=== PATIENT | male | born 1950 | race Caucasian/White ===

== ENCOUNTER → 2021-08-03 | Outpatient (CLI) | payer OTHER ==
[~2021-08-03] MED LIST: AMLODIPINE BESY10 MG PO; ASPIRIN 325MG325 MG PO; CLOPIDOGREL75 MG PO; COZAAR100 MG PO; CRESTOR40 MG PO; GABAPENTIN300 MG PO; GLUCOPHAGE500 MG PO; INVOKANA300 MG PO; JANUVIA100 MG PO; LAMISIL TAB 25250 MG PO; NITROGLYCERIN1 EAC2 TD; ONCE DAILY1 EACH PO; RANOLAZINE ER1000 MG PO; ZANTAC 150 MG150 MG PO; ZANTAC300 MG PO; ZINC50 M1 PO
== END ==
LOC: EXRD 13:07
DX: I73.9 Peripheral vascular disease, unspecified (principal); E11.9 Type 2 diabetes mellitus without complications
CPT/HCPCS: 93925

== ENCOUNTER → 2022-01-22 | Outpatient (CLI) | payer OTHER ==
[~2022-01-22] MED LIST changes: -ASPIRIN 325MG325 MG PO; +ASPIRIN EC81 MG PO; +COQ-10100 MG PO; +FISH OIL 1,0001 EACH PO; +JARDIANCE25 MG PO; +NITROGLYCERIN0.4 MG SL; +NITROGLYCERIN1 EAC1 TD; -NITROGLYCERIN1 EAC2 TD; +OMEPRAZOLE20 MG PO; +PRAMIPEXOLE DI0.5 MG PO; +SPIRONOLACTONE25 MG PO
== END | disposition home or self-care (01) ==
LOC: WCC 06:44
DX: E11.621 Type 2 diabetes mellitus with foot ulcer (principal); L97.512 Non-pressure chronic ulcer of other part of right foot with fat layer exposed; L97.513 Non-pressure chronic ulcer of other part of right foot with necrosis of muscle; L97.812 Non-pressure chronic ulcer of other part of right lower leg with fat layer exposed; E11.65 Type 2 diabetes mellitus with hyperglycemia; I25.10 Atherosclerotic heart disease of native coronary artery without angina pectoris; I73.9 Peripheral vascular disease, unspecified; J44.9 Chronic obstructive pulmonary disease, unspecified; E11.40 Type 2 diabetes mellitus with diabetic neuropathy, unspecified; E66.01 Morbid (severe) obesity due to excess calories; L84 Corns and callosities; Z79.4 Long term (current) use of insulin; Z87.891 Personal history of nicotine dependence; Z79.82 Long term (current) use of aspirin; Z79.899 Other long term (current) drug therapy; Z68.33 Body mass index [BMI] 33.0-33.9, adult
CPT/HCPCS: 87070; 87077; 87186; 87205

== ENCOUNTER → 2022-01-25 | Outpatient (CLI) | payer OTHER | LOC: RAD 12:52 | DX: E11.621 Type 2 diabetes mellitus with foot ulcer (principal) | CPT/HCPCS: 73630 ==

== ENCOUNTER → 2022-01-28 | Outpatient (CLI) | payer OTHER ==
[2022-01-28 16:35] LABS: HEMOGLOBIN 13.2 gm/dl (14.0-17.5); RED BLOOD COUNT 4.25 M/UL (4.20-5.50); WHITE BLOOD COUNT 8.6 K/UL (4.5-11.0)
[2022-01-28 17:04] LABS: BUN/CREATININE RATIO 26 (0-10)
== END ==
LOC: LAB 15:55
PROVIDERS: Nurse Practitioner Family
DX: E11.69 Type 2 diabetes mellitus with other specified complication (principal); M86.9 Osteomyelitis, unspecified; E11.621 Type 2 diabetes mellitus with foot ulcer
CPT/HCPCS: 36415; 71046; 80053; 85025; 85652; 86140; 93005

== ENCOUNTER → 2022-01-28 | Outpatient (CLI) | payer OTHER | END | disposition home or self-care (01) | LOC: WCC 09:21 | DX: E11.621 Type 2 diabetes mellitus with foot ulcer (principal); L97.516 Non-pressure chronic ulcer of other part of right foot with bone involvement without evidence of necrosis; L97.812 Non-pressure chronic ulcer of other part of right lower leg with fat layer exposed; E11.40 Type 2 diabetes mellitus with diabetic neuropathy, unspecified; E11.51 Type 2 diabetes mellitus with diabetic peripheral angiopathy without gangrene; E11.69 Type 2 diabetes mellitus with other specified complication; M86.071 Acute hematogenous osteomyelitis, right ankle and foot; I25.10 Atherosclerotic heart disease of native coronary artery without angina pectoris; J44.9 Chronic obstructive pulmonary disease, unspecified; L84 Corns and callosities; E66.01 Morbid (severe) obesity due to excess calories; Z79.4 Long term (current) use of insulin; Z79.82 Long term (current) use of aspirin; Z79.899 Other long term (current) drug therapy; Z68.33 Body mass index [BMI] 33.0-33.9, adult ==

== ENCOUNTER → 2022-02-01 | Outpatient (CLI) | payer OTHER | LOC: OPSV 12:00 | DX: Z45.2 Encounter for adjustment and management of vascular access device (principal) | CPT/HCPCS: 96365; C1751; J2185 ==

== ENCOUNTER → 2022-02-04 | Outpatient (CLI) | payer OTHER | END | disposition home or self-care (01) | LOC: WCC 08:16 | DX: E11.621 Type 2 diabetes mellitus with foot ulcer (principal); L97.516 Non-pressure chronic ulcer of other part of right foot with bone involvement without evidence of necrosis; L97.811 Non-pressure chronic ulcer of other part of right lower leg limited to breakdown of skin; E11.40 Type 2 diabetes mellitus with diabetic neuropathy, unspecified; E11.65 Type 2 diabetes mellitus with hyperglycemia; E11.51 Type 2 diabetes mellitus with diabetic peripheral angiopathy without gangrene; E11.69 Type 2 diabetes mellitus with other specified complication; M86.071 Acute hematogenous osteomyelitis, right ankle and foot; I25.10 Atherosclerotic heart disease of native coronary artery without angina pectoris; L84 Corns and callosities; J44.9 Chronic obstructive pulmonary disease, unspecified; E66.01 Morbid (severe) obesity due to excess calories; Z79.82 Long term (current) use of aspirin; Z79.899 Other long term (current) drug therapy; Z68.33 Body mass index [BMI] 33.0-33.9, adult | CPT/HCPCS: 97597 ==

== ENCOUNTER → 2022-02-04 | Outpatient (CLI) | payer OTHER ==
[2022-02-04 15:01] LABS: HEMOGLOBIN 12.8 gm/dl (14.0-17.5); RED BLOOD COUNT 4.1 M/UL (4.20-5.50); WHITE BLOOD COUNT 7.7 K/UL (4.5-11.0)
[2022-02-04 15:33] LABS: BUN/CREATININE RATIO 23 (0-10)
== END ==
LOC: OPSV 14:39
PROVIDERS: Nurse Practitioner Family
DX: M86.9 Osteomyelitis, unspecified (principal)
CPT/HCPCS: 80053; 85027; 85652; 86140

== ENCOUNTER → 2022-02-08 | Outpatient (CLI) | payer OTHER | LOC: EMI 14:36 | DX: M86.9 Osteomyelitis, unspecified (principal) | CPT/HCPCS: 73718 ==

== ENCOUNTER → 2022-02-12 | Outpatient (CLI) | payer OTHER | LOC: WCC 07:31 | DX: E11.621 Type 2 diabetes mellitus with foot ulcer (principal); L97.516 Non-pressure chronic ulcer of other part of right foot with bone involvement without evidence of necrosis; L97.812 Non-pressure chronic ulcer of other part of right lower leg with fat layer exposed; L84 Corns and callosities; E11.40 Type 2 diabetes mellitus with diabetic neuropathy, unspecified; E11.65 Type 2 diabetes mellitus with hyperglycemia; E11.51 Type 2 diabetes mellitus with diabetic peripheral angiopathy without gangrene; E11.69 Type 2 diabetes mellitus with other specified complication; M86.071 Acute hematogenous osteomyelitis, right ankle and foot; E66.01 Morbid (severe) obesity due to excess calories; I25.10 Atherosclerotic heart disease of native coronary artery without angina pectoris; J44.9 Chronic obstructive pulmonary disease, unspecified; Z68.33 Body mass index [BMI] 33.0-33.9, adult; Z79.4 Long term (current) use of insulin; Z79.02 Long term (current) use of antithrombotics/antiplatelets; Z79.82 Long term (current) use of aspirin; Z79.899 Other long term (current) drug therapy ==

== ENCOUNTER → 2022-02-12 | Outpatient (CLI) | payer OTHER ==
[2022-02-12 15:41] LABS: HEMOGLOBIN 13.3 gm/dl (14.0-17.5); RED BLOOD COUNT 4.29 M/UL (4.20-5.50); WHITE BLOOD COUNT 8.2 K/UL (4.5-11.0)
[2022-02-12 16:01] LABS: BUN/CREATININE RATIO 31 (0-10)
== END ==
LOC: OPSV 15:00
PROVIDERS: Nurse Practitioner Family
DX: M86.9 Osteomyelitis, unspecified (principal)
CPT/HCPCS: 80053; 85027; 85652; 86140

== ENCOUNTER → 2022-02-18 | Outpatient (CLI) | payer OTHER ==
[2022-02-18 14:15] LABS: RED BLOOD COUNT 4.14 M/UL (4.20-5.50); WHITE BLOOD COUNT 7.4 K/UL (4.5-11.0)
[2022-02-18 14:44] LABS: BUN/CREATININE RATIO 33 (0-10)
== END | disposition home or self-care (01) ==
LOC: OPSV 13:47
PROVIDERS: Nurse Practitioner Family
DX: E11.69 Type 2 diabetes mellitus with other specified complication (principal); E11.65 Type 2 diabetes mellitus with hyperglycemia
CPT/HCPCS: 80053; 83036; 85027; 85652; 86140

== ENCOUNTER → 2022-02-25 | Outpatient (CLI) | payer OTHER | END | disposition home or self-care (01) | LOC: WCC 09:06 | DX: E11.621 Type 2 diabetes mellitus with foot ulcer (principal); L97.516 Non-pressure chronic ulcer of other part of right foot with bone involvement without evidence of necrosis; E11.65 Type 2 diabetes mellitus with hyperglycemia; E11.40 Type 2 diabetes mellitus with diabetic neuropathy, unspecified; E11.51 Type 2 diabetes mellitus with diabetic peripheral angiopathy without gangrene; E11.69 Type 2 diabetes mellitus with other specified complication; M86.071 Acute hematogenous osteomyelitis, right ankle and foot; I25.10 Atherosclerotic heart disease of native coronary artery without angina pectoris; L84 Corns and callosities; J44.9 Chronic obstructive pulmonary disease, unspecified; E66.01 Morbid (severe) obesity due to excess calories; Z79.4 Long term (current) use of insulin; Z79.82 Long term (current) use of aspirin; Z79.899 Other long term (current) drug therapy; Z68.33 Body mass index [BMI] 33.0-33.9, adult ==

== ENCOUNTER → 2022-02-25 | Outpatient (CLI) | payer OTHER ==
[2022-02-25 14:21] LABS: HEMOGLOBIN 13.2 gm/dl (14.0-17.5); RED BLOOD COUNT 4.24 M/UL (4.20-5.50); WHITE BLOOD COUNT 6.9 K/UL (4.5-11.0)
[2022-02-25 14:41] LABS: BUN/CREATININE RATIO 32 (0-10)
== END ==
LOC: OPSV 13:28
PROVIDERS: Nurse Practitioner Family
DX: M86.9 Osteomyelitis, unspecified (principal)
CPT/HCPCS: 80053; 85027; 85652; 86140

== ENCOUNTER → 2022-03-04 | Outpatient (CLI) | payer OTHER | LOC: WCC 08:17 | DX: E11.621 Type 2 diabetes mellitus with foot ulcer (principal); L97.516 Non-pressure chronic ulcer of other part of right foot with bone involvement without evidence of necrosis; L84 Corns and callosities; E11.40 Type 2 diabetes mellitus with diabetic neuropathy, unspecified; E11.65 Type 2 diabetes mellitus with hyperglycemia; E66.01 Morbid (severe) obesity due to excess calories; I25.10 Atherosclerotic heart disease of native coronary artery without angina pectoris; E11.69 Type 2 diabetes mellitus with other specified complication; M86.071 Acute hematogenous osteomyelitis, right ankle and foot; E11.51 Type 2 diabetes mellitus with diabetic peripheral angiopathy without gangrene; J44.9 Chronic obstructive pulmonary disease, unspecified; Z79.4 Long term (current) use of insulin ==

== ENCOUNTER → 2022-03-04 | Outpatient (CLI) | payer OTHER ==
[2022-03-04 14:21] LABS: HEMOGLOBIN 13.2 gm/dl (14.0-17.5); RED BLOOD COUNT 4.44 M/UL (4.20-5.50); WHITE BLOOD COUNT 6.4 K/UL (4.5-11.0)
[2022-03-04 14:45] LABS: BUN/CREATININE RATIO 29 (0-10)
== END ==
LOC: OPSV 13:00
PROVIDERS: Nurse Practitioner Family
DX: M86.9 Osteomyelitis, unspecified (principal)
CPT/HCPCS: 80053; 85027; 85652; 86140

== ENCOUNTER → 2022-03-11 | Outpatient (CLI) | payer OTHER ==
[2022-03-11 14:19] LABS: HEMOGLOBIN 13.5 gm/dl (14.0-17.5); RED BLOOD COUNT 4.39 M/UL (4.20-5.50); WHITE BLOOD COUNT 5.9 K/UL (4.5-11.0)
[2022-03-11 16:15] LABS: BUN/CREATININE RATIO 32 (0-10)
== END ==
LOC: OPSV 13:45
PROVIDERS: Nurse Practitioner Family
DX: M86.9 Osteomyelitis, unspecified (principal)
CPT/HCPCS: 80053; 85027; 85652; 86140

== ENCOUNTER → 2022-03-20 | Outpatient (CLI) | payer OTHER | LOC: WCC 07:22 | DX: E11.621 Type 2 diabetes mellitus with foot ulcer (principal); L97.516 Non-pressure chronic ulcer of other part of right foot with bone involvement without evidence of necrosis; L84 Corns and callosities; E11.40 Type 2 diabetes mellitus with diabetic neuropathy, unspecified; E11.65 Type 2 diabetes mellitus with hyperglycemia; E11.69 Type 2 diabetes mellitus with other specified complication; M86.071 Acute hematogenous osteomyelitis, right ankle and foot; E11.51 Type 2 diabetes mellitus with diabetic peripheral angiopathy without gangrene; E66.01 Morbid (severe) obesity due to excess calories; I25.10 Atherosclerotic heart disease of native coronary artery without angina pectoris; Z68.33 Body mass index [BMI] 33.0-33.9, adult; Z79.4 Long term (current) use of insulin; J44.9 Chronic obstructive pulmonary disease, unspecified; Z79.02 Long term (current) use of antithrombotics/antiplatelets; Z79.82 Long term (current) use of aspirin; Z79.899 Other long term (current) drug therapy | CPT/HCPCS: 87070; 87205 ==

== ENCOUNTER → 2022-03-21 | Outpatient (CLI) | payer OTHER ==
[2022-03-21 14:27] LABS: HEMOGLOBIN 14.1 gm/dl (14.0-17.5); RED BLOOD COUNT 4.58 M/UL (4.20-5.50)
[2022-03-21 14:52] LABS: BUN/CREATININE RATIO 33 (0-10)
== END | disposition home or self-care (01) ==
LOC: OPSV 14:00
PROVIDERS: Nurse Practitioner Family
DX: M86.9 Osteomyelitis, unspecified (principal)
CPT/HCPCS: 80053; 85027; 85652; 86140

== ENCOUNTER → 2022-03-25 | Outpatient (CLI) | payer OTHER | LOC: WCC 07:51 | DX: E11.621 Type 2 diabetes mellitus with foot ulcer (principal); L97.516 Non-pressure chronic ulcer of other part of right foot with bone involvement without evidence of necrosis; S81.801A Unspecified open wound, right lower leg, initial encounter; L84 Corns and callosities; E11.40 Type 2 diabetes mellitus with diabetic neuropathy, unspecified; E11.65 Type 2 diabetes mellitus with hyperglycemia; E66.01 Morbid (severe) obesity due to excess calories; I25.10 Atherosclerotic heart disease of native coronary artery without angina pectoris; E11.51 Type 2 diabetes mellitus with diabetic peripheral angiopathy without gangrene; E11.69 Type 2 diabetes mellitus with other specified complication; M86.071 Acute hematogenous osteomyelitis, right ankle and foot; J44.9 Chronic obstructive pulmonary disease, unspecified; Z68.33 Body mass index [BMI] 33.0-33.9, adult; Z79.4 Long term (current) use of insulin ==

== ENCOUNTER → 2022-03-28 | Outpatient (CLI) | payer OTHER | LOC: OPSV 13:58 | DX: E11.621 Type 2 diabetes mellitus with foot ulcer (principal); L97.812 Non-pressure chronic ulcer of other part of right lower leg with fat layer exposed; E11.51 Type 2 diabetes mellitus with diabetic peripheral angiopathy without gangrene; E11.69 Type 2 diabetes mellitus with other specified complication; M86.071 Acute hematogenous osteomyelitis, right ankle and foot; E11.40 Type 2 diabetes mellitus with diabetic neuropathy, unspecified; E11.65 Type 2 diabetes mellitus with hyperglycemia; I25.10 Atherosclerotic heart disease of native coronary artery without angina pectoris; J44.9 Chronic obstructive pulmonary disease, unspecified; E66.01 Morbid (severe) obesity due to excess calories; Z79.4 Long term (current) use of insulin | CPT/HCPCS: G0463 ==

== ENCOUNTER → 2022-04-08 | Outpatient (CLI) | payer OTHER | LOC: WCC 07:50 | DX: E11.621 Type 2 diabetes mellitus with foot ulcer (principal); L97.516 Non-pressure chronic ulcer of other part of right foot with bone involvement without evidence of necrosis; S81.801A Unspecified open wound, right lower leg, initial encounter; L84 Corns and callosities; E11.40 Type 2 diabetes mellitus with diabetic neuropathy, unspecified; E11.65 Type 2 diabetes mellitus with hyperglycemia; E66.01 Morbid (severe) obesity due to excess calories; I25.10 Atherosclerotic heart disease of native coronary artery without angina pectoris; I73.9 Peripheral vascular disease, unspecified; J44.9 Chronic obstructive pulmonary disease, unspecified; M86.071 Acute hematogenous osteomyelitis, right ankle and foot; I10 Essential (primary) hypertension; Z79.02 Long term (current) use of antithrombotics/antiplatelets; Z79.82 Long term (current) use of aspirin ==

== ENCOUNTER → 2022-04-23 | Outpatient (CLI) | payer OTHER | LOC: WCC 07:10 | DX: E11.621 Type 2 diabetes mellitus with foot ulcer (principal); L97.516 Non-pressure chronic ulcer of other part of right foot with bone involvement without evidence of necrosis; L84 Corns and callosities; E11.40 Type 2 diabetes mellitus with diabetic neuropathy, unspecified; E11.65 Type 2 diabetes mellitus with hyperglycemia; E66.01 Morbid (severe) obesity due to excess calories; I25.10 Atherosclerotic heart disease of native coronary artery without angina pectoris; E11.51 Type 2 diabetes mellitus with diabetic peripheral angiopathy without gangrene; J44.9 Chronic obstructive pulmonary disease, unspecified; E11.69 Type 2 diabetes mellitus with other specified complication; M86.071 Acute hematogenous osteomyelitis, right ankle and foot; Z68.33 Body mass index [BMI] 33.0-33.9, adult; Z79.4 Long term (current) use of insulin ==

== ENCOUNTER → 2022-05-09 | Outpatient (CLI) | payer OTHER | LOC: WCC 08:37 | DX: E11.621 Type 2 diabetes mellitus with foot ulcer (principal); L97.516 Non-pressure chronic ulcer of other part of right foot with bone involvement without evidence of necrosis; L84 Corns and callosities; E11.40 Type 2 diabetes mellitus with diabetic neuropathy, unspecified; E11.65 Type 2 diabetes mellitus with hyperglycemia; E66.01 Morbid (severe) obesity due to excess calories; I25.10 Atherosclerotic heart disease of native coronary artery without angina pectoris; I73.9 Peripheral vascular disease, unspecified; J44.9 Chronic obstructive pulmonary disease, unspecified; M86.071 Acute hematogenous osteomyelitis, right ankle and foot; I10 Essential (primary) hypertension; Z79.4 Long term (current) use of insulin; Z79.02 Long term (current) use of antithrombotics/antiplatelets; Z79.82 Long term (current) use of aspirin ==

== ENCOUNTER → 2022-05-24 | Outpatient (CLI) | payer OTHER | LOC: WCC 07:35 | DX: E11.621 Type 2 diabetes mellitus with foot ulcer (principal); L97.512 Non-pressure chronic ulcer of other part of right foot with fat layer exposed; L84 Corns and callosities; E11.40 Type 2 diabetes mellitus with diabetic neuropathy, unspecified; E11.65 Type 2 diabetes mellitus with hyperglycemia; E66.01 Morbid (severe) obesity due to excess calories; I25.10 Atherosclerotic heart disease of native coronary artery without angina pectoris; I73.9 Peripheral vascular disease, unspecified; J44.9 Chronic obstructive pulmonary disease, unspecified; M86.071 Acute hematogenous osteomyelitis, right ankle and foot; I10 Essential (primary) hypertension; Z79.4 Long term (current) use of insulin; Z79.02 Long term (current) use of antithrombotics/antiplatelets; Z79.82 Long term (current) use of aspirin ==

== ENCOUNTER → 2022-06-06 | Outpatient (CLI) | payer OTHER | LOC: WCC 07:52 | DX: E11.621 Type 2 diabetes mellitus with foot ulcer (principal); L97.812 Non-pressure chronic ulcer of other part of right lower leg with fat layer exposed; E11.51 Type 2 diabetes mellitus with diabetic peripheral angiopathy without gangrene; E11.69 Type 2 diabetes mellitus with other specified complication; M86.071 Acute hematogenous osteomyelitis, right ankle and foot; E11.40 Type 2 diabetes mellitus with diabetic neuropathy, unspecified; L84 Corns and callosities; E11.65 Type 2 diabetes mellitus with hyperglycemia; E66.01 Morbid (severe) obesity due to excess calories; I25.10 Atherosclerotic heart disease of native coronary artery without angina pectoris; J44.9 Chronic obstructive pulmonary disease, unspecified | CPT/HCPCS: G0463 ==